=== PATIENT | male | born 1990 | race Two or more races ===

== ENCOUNTER → 2016-10-14 | Outpatient (REF) | payer OTHER | LOC: M SMT 13:43 | PROVIDERS: ATTEND Urology | DX: Z30.2 Encounter for sterilization (principal) ==

== ENCOUNTER → 2016-12-27 | Outpatient (REF) | payer OTHER ==
[2016-12-27 14:09] LABS: IMMOTILE SPERM ABSENT (ABSENT); MOTILE SPERM ABSENT (ABSENT)
[2016-12-27 14:12] LABS: IMMMOTILE SPERM CENTRIFUGED ABSENT (ABSENT); MOTILE SPERM CENTRIFUGED ABSENT (ABSENT); SPERM ABNORMAL FORMS WBC'S NOTED
== END ==
LOC: M SMT 13:06
PROVIDERS: ATTEND Urology
DX: Z98.52 Vasectomy status (principal)